=== PATIENT | female | born 1960 | race Caucasian/White ===

== ENCOUNTER 2016-07-03 22:05 | Emergency (ER) | payer BC ==
[~2016-07-03] VITALS: Ht 167.6 cm; Wt 137.9 kg
[~2016-07-03 22:05] MED LIST: ACCUPRIL40 MG PO; ACTOS 45 MG45 M1 PO; ADULT LOW DOSE81 MG PO; ADVAIR 250-501 EACH INH; ALBUTEROL INHAL17 GM INH; ALLEGRA180 MG PO; ALPRAZOLAM 0.50.5 M1 PO; AMARYL4 MG PO; AMBIEN 10 MG TA10 MG PO; ASPIRIN EC81 M1 PO; ATROVENT INH; ATROVENT NS; ATROVENT30 ML INH; ATROVENT30 ML NASAL; AUGMENTIN 875875 MG PO; AZOPT OPHTH1 %/10 M1 OPHTHALMIC; BLACK COHOSH EX80 MG PO; BUSPAR30 MG PO; BUSPIRONE HCL10 MG PO; CALCIUM 600 +1 EAC1 PO; CALCIUM CARBO1000 MG PO; CELEXA40 MG PO; CENTRUM SILVER1 EAC4 PO; DESYREL50 MG PO; DUONEB 2.5-0.5 M3 ML; ESTRATEST H.S.1 EACH PO; ESTROGEN/METHYL1 TA1 PO; FEXOFENADINE H180 MG PO; FISH OIL 1,0001 EAC5 PO; FLEXERIL PO; FLONASE 0.05%50 MCG NS; FLONASE NASAL; FLONASE16 GM; GLIMEPIRIDE4 MG PO; GLUCOSAMINE &1 EACH PO; HYDROCHLOROTHIA25 M2 PO; IRON159 MG PO; JANUVIA100 MG PO; KLOR-CON 10 ER10 MEQ PO; L-LYSINE1000 M1 PO; LAMOTRIGINE150 MG PO; LANTUS SC; LANTUS SUBQ; LATANOPROST2.5 ML OP; LEVAQUIN PO; LEXAPRO 10 MG T10 MG PO; LUMIGAN2.5 M1 OPHTHALMIC; MOBIC15 MG PO; MUCINEX TA600 MG/TA2 PO; MULTIVITAMINS1 EAC7 PO; NORCO 5-325 TA1 EACH PO; OMEPRAZOLE40 MG PO; PERCOCET 5-3251 EACH PO; PERCOCET 7.5-31 EACH PO; PHENERGAN 25 MG25 M1 PO; PRAVACHOL20 MG PO; PRAVASTATIN SOD20 MG PO; PREDNISONE 10 M10 MG PO; PREDNISONE 20 M20 MG PO; PREDNISONE50 MG PO; PRILOSEC40 MG PO; PROAIR HFA8.5 GM; PROBIOTIC1 EAC1 PO; REGLAN 10 MG TA10 MG PO; SINGULAIR 10 MG10 M1 PO; SONATA10 MG PO; SOY ISOFLAVONES40 MG PO; SYMBICORT160 MCG/4. INH; TEGRETOL PO; TOBREX5 ML OP; TRAZODONE HCL100 MG PO; TRUSOPT OCUMETE10 ML OP; TUSSIONEX PENN473 ML PO; VALIUM5 MG PO; VICODIN PO; VITAMIN B-12100 MC1 PO; VITAMIN B-12500 MCG PO; VITAMIN D2000 UNIT PO; VITAMINC500 PO; XALATAN2.5 ML OP; XANAX 0.25 MG0.25 MG PO; ZOFRAN ODT4 M1 PO; ZOLOFT50 MG PO; [UNRECOGNIZED DRUG - OTHER] PO
[2016-07-03 22:18] VITALS: BP 144/37
[2016-07-03] MEDS ORDERED: DILAUDID 2 MG TA2 MG PO (23:17)
== END 2016-07-03 23:10 | disposition home or self-care (01) ==
LOC: ER 22:05
DX: S86.812A Strain of other muscle(s) and tendon(s) at lower leg level, left leg, initial encounter (principal); S76.112A Strain of left quadriceps muscle, fascia and tendon, initial encounter; E11.9 Type 2 diabetes mellitus without complications; G40.909 Epilepsy, unspecified, not intractable, without status epilepticus; I10 Essential (primary) hypertension; Z90.89 Acquired absence of other organs; Z90.710 Acquired absence of both cervix and uterus; Z88.2 Allergy status to sulfonamides; Z88.6 Allergy status to analgesic agent; Z88.8 Allergy status to other drugs, medicaments and biological substances; X58.XXXA Exposure to other specified factors, initial encounter; Y93.89 Activity, other specified; Y92.89 Other specified places as the place of occurrence of the external cause; Y99.9 Unspecified external cause status

== ENCOUNTER 2016-07-31 09:18 | Emergency (ER) | payer BC ==
[~2016-07-31] VITALS: Ht 167.6 cm; Wt 137.9 kg
[~2016-07-31 09:18] MED LIST changes: +DILAUDID 2 MG TA2 MG PO
[2016-07-31 10:18] LABS: ABSOLUTE NEUTROPHILS 5.1 thou/uL (1.4-8.2); BASOPHILS 1.1 % (0.0-2.0); HEMATOCRIT 36.4 % (37.0-47.0); HEMOGLOBIN 12.1 gm/dL (12.0-15.0); MCH 29.3 pg (26.0-34.0); MCHC 33.1 g/dL (28.0-37.0); MCV 88.5 fL (80.0-100.0); MONOCYTES 5.9 % (1.0-8.0); PLATELET COUNT 243 thou/uL (150-400); RBC 4.12 mil/uL (4.20-5.00); RDW 15.5 % (10.5-14.5); WBC 6.7 thou/uL (4.0-11.0)
[2016-07-31 10:19] LABS: MANUAL DIFF NO
[2016-07-31 10:22] LABS: URINE BILIRUBIN NEGATIVE (Negative); URINE BLOOD NEGATIVE (Negative); URINE COLOR YELLOW; URINE GLUCOSE-RANDOM* NEGATIVE (Negative); URINE KETONES NEGATIVE (Negative); URINE NITRITE NEGATIVE (Negative); URINE PROTEIN (DIPSTICK) NEGATIVE (Negative); URINE SPECIFIC GRAVITY 1.015 (1.003-1.035); URINE UROBILINOGEN 0.2 E.U./dl (0.2-1.0)
[2016-07-31 10:29] LABS: CALCIUM 9.5 mg/dL (8.5-10.1); CREATININE 0.9 mg/dL (0.6-1.0); POTASSIUM 3.9 mmol/L (3.5-5.1)
[2016-07-31 10:33] LABS: ALBUMIN 3.7 g/dL (3.4-5.0); TOTAL BILIRUBIN 0.3 mg/dL (<0.1-1.0); TOTAL PROTEIN 7.1 g/dL (6.4-8.2)
[2016-07-31] MEDS ORDERED: LIDOCAINE 22 %/30 GM MM (12:18)
[2016-07-31] MEDS ORDERED: REGLAN 10 MG TA10 MG PO (12:18)
[2016-07-31] MEDS ORDERED: NORCO 5-325 TA1 EACH PO (12:26)
[2016-07-31 12:51] VITALS: BP 150/69
== END 2016-07-31 12:53 | disposition home or self-care (01) ==
LOC: ER 09:18
PROVIDERS: Physician Assistant
DX: R11.2 Nausea with vomiting, unspecified (principal); K08.89 Other specified disorders of teeth and supporting structures; R10.32 Left lower quadrant pain; E11.9 Type 2 diabetes mellitus without complications; I10 Essential (primary) hypertension; G40.909 Epilepsy, unspecified, not intractable, without status epilepticus; Z90.710 Acquired absence of both cervix and uterus; Z88.2 Allergy status to sulfonamides; Z88.6 Allergy status to analgesic agent

== ENCOUNTER 2016-12-16 01:14 | Inpatient (IN) | payer BC ==
[~2016-12-16] VITALS: Ht 167.6 cm; Wt 132.0 kg
[2016-12-16] VITALS (7 sets, daily range): BP systolic 132–160; BP diastolic 48–67
--- NOTE | ~2016-12-16 | HC ---
[facility] [place] [address] CONSULTATION Name: KWADWO SHAY Room #: 453-P [facility] IN ..#: [id number] Admission: 12/16/16 Attend Phys: Rashid Baez MD Discharge: Date of : 56 Report #: [id number] THIS REPORT FOR: //name// CC: Rashid Brito DATE OF SERVICE: 12/16/2016 GASTROINTESTINAL CONSULTATION DATE OF SERVICE: 12/16/2016 HISTORY OF PRESENT ILLNESS: The patient is a very pleasant 56-year-old female I have been asked to see for further evaluation of her GI complaints which include black stools, shortness of breath and chest pressure. She has been treated for C. diff x 2 in August and September, has had recent knee replacement less than a year ago and was found to have a hemoglobin of 7.7, which was significantly reduced over her baseline. PAST MEDICAL HISTORY: Complicated but includes glaucoma, seizure disorder, back injury, obesity, sinus surgery, cholecystectomy, eye surgeries, hypertension, left knee replacement. SOCIAL HISTORY: She has a smoking history, but quit over a year ago. She denies alcohol consumption or drug consumption. MEDICATIONS: Her medication list is extensive and includes Actos, Januvia, lamotrigine, Symbicort, omeprazole, Mobic, Accupril, Klor-Con, pravastatin, pantoprazole, latanoprost, aspirin, multivitamin, albuterol, Singulair, Reglan, hydrochlorothiazide, Mucinex, vitamin D3, trazodone, buspirone, Zoloft, Wellbutrin, Flonase, Atrovent, glucosamine, vitamin C, probiotic. FAMILY HISTORY: Noncontributory. REVIEW OF SYSTEMS: Negative for weight loss, weakness or fatigue. She denies head, eyes, ears, nose or throat complaints. She denies chest pain, chest palpitation, chest pressure, cough, shortness of breath, wheezing, genitourinary, musculoskeletal or neuropsychiatric complaints otherwise. PHYSICAL EXAMINATION: VITAL SIGNS: Afebrile, vital signs stable. HEENT: Nonicteric. NECK: No JVD, thyromegaly or bruits. CARDIOVASCULAR: Regular. LUNGS: Clear. ABDOMEN: Soft, nondistended, obese. No stigmata of chronic liver disease. [address] [address] CONSULTATION Name: KWADWO SHAY Room #: 453-P [facility] IN .R.#: [id number] Admission: 12/16/16 Attend Phys: Rashid Baez MD Discharge: Date of : 56 Report #: [id number] abnormal masses or bruits. EXTREMITIES: Not examined. NEUROLOGIC: Deferred. RECTAL: Deferred. PERTINENT LABORATORY DATA: Include hemoglobin 7.7, down significantly from her prior measurement, white count 7.0, platelet count 279. INR 1.0. Serum chemistry reviewed. Sodium 138, potassium 4.7, venous bicarbonate 95, BUN 36, creatinine 1.1. Liver tests are normal. Lipase normal. IMAGING: Chest x-ray, cardiomegaly with mild vascular congestion. ASSESSMENT AND PLAN: In summary, the patient presents with suspected upper gastrointestinal hemorrhage with melena and anemia. We will proceed with upper endoscopy to exclude actively bleeding peptic ulcer and have recommendations to follow. In the meantime, I would keep her n.p.o. and cover her with PPI therapy. <ELECTRONICALLY SIGNED> By: Calos Winchester MD 12/17/16 0959 1320 1418 Calos Winchester MD /nt
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
--- NOTE | ~2016-12-16 | EKG ---
[address] [address] ELECTROCARDIOGRAM REPORT Name: KWADWO SHAY Room #: 463-P ADM IN M.R.#: [id number] Admission: 12/16/16 Attend Phys: Rashid Baez MD Discharge: Date of : 56 Report #: [id number] THIS REPORT FOR: //name// [facility] ED Test Date: 2016-12-16 Test Time: 01:18:52 Pat Name: KWADWO SHAY Department: Room: [facility] Gender: F Loan Supervisor: [id number] : 1960 Requested By: Maurice Hassan Order Number: [id number] MD: Reyes Tee Measurements Intervals [place] Rate: 93 P: 25 AL: 157 QRS: 24 QRSD: 100 T: 59 QT: 371 QTc: 462 Interpretive Statements Sinus rhythm Probable left atrial enlargement LVH with secondary repolarization abnormality Compared to ECG 04/18/2016 21:01:23 No significant change was found Electronically Signed On 12-18-2016 8:17:10 CDT by Reyes Tee [email or web address] <ELECTRONICALLY SIGNED> By: Reyes Tee MD, [facility] 12/18/16 0817 0118 0118 Reyes Tee MD, [facility] /EPI
--- NOTE | ~2016-12-16 | P ---
[facility] [place] [address] PROCEDURE REPORT Name: KWADWO SHAY Room #: 463-P [facility] IN M.R.#: [id number] Admission: 12/16/16 Attend Phys: Rashid Baze MD Discharge: Date of : 56 Report #: [id number] THIS REPORT FOR: //name// CC: Rashid Brito BRIEF HISTORY: The patient is a 56-year-old woman who has a history of moderate aortic stenosis who has had black stools for several months. She has been found to be anemic and required blood transfusion. She had an upper endoscopy over the weekend and urgently for GI bleeding, an AVM was cauterized in duodenum. However, she was found to have changes in the antrum of stomach, thought to be consistent with a gastric antral vascular ectasias. Last black stool was yesterday. PREOPERATIVE DIAGNOSES: Gastrointestinal bleeding and gastric antral vascular ectasia. POSTOPERATIVE DIAGNOSIS: Gastric antral vascular ectasia. MEDICATIONS: Deep sedation with propofol per anesthesia. SPECIMEN: None. ESTIMATED BLOOD LOSS: 5 mL. PROCEDURE: EGD with argon plasma coagulation of gastric antral vascular ectasia. FINDINGS: Prior to propofol sedation, procedure of upper endoscopy and treatment with argon plasma coagulation discussed with the patient as well as potential risks and its complications. She indicates she understands and desires to proceed. DESCRIPTION OF PROCEDURE: With the patient in left lateral decubitus position, the [employer] video endoscope was inserted in the cervical esophagus under direct vision without difficulty. Examination of this organ through its entire length revealed normal esophageal mucosa down the squamocolumnar junction. No blood was seen in the esophagus. The scope was advanced into the stomach, which was examined on end view as well as retroflexed views. Examination of the stomach revealed normal mucosa in the proximal stomach including upon retroflexion. No bleeding lesions or ulcers were seen. Examination of distal stomach revealed typical pattern of watermelon stomach consistent with gastric antral vascular ectasias. The red stripes were quite prominent. There was some friability and just touching of the scope caused a little bit of bright red blood. These were in the antrum and right to the level of the pylorus. Examination of duodenal bulb and postbulbar duodenal sweep done revealed normal mucosa. At that point, the scope was drawn back into the stomach and we then started treating [facility] [address] [place] [address] PROCEDURE REPORT Name: KWADWO SHAY Room #: 463-P [facility] IN [facility]#: [id number] Admission: 12/16/16 Attend Phys: Rashid Baez MD Discharge: Date of : 56 Report #: [id number] the stomach with a 7-Macedonian argon plasma coagulation probe. We treated all the stripes. As expected, there was a little bit of oozing with the treatment but significant bleeding was not encountered. We periodically removed the argon gas from the stomach to reduce distention. We made multiple passes and all stripes were treated. At this point, the antrum was becoming very spastic and was very difficult to obtain good views. We made good success in treating this area. Gas was removed. The scope was withdrawn. The patient tolerated the procedure well. DISPOSITION: The patient with GI bleeding and vascular ectasia of the antrum. Treated as noted above. We will place on a PPI. We will also on a short term basis place her on sucralfate. We will have her return in 4 weeks for another treatment sessions to resolve her antral ectasias. <ELECTRONICALLY SIGNED> By: Louis Lane MD 12/18/16 [address] MD /nt
--- NOTE | ~2016-12-16 | P ---
[facility] [place] [address] PROCEDURE REPORT Name: KWADWO SHAY Room #: 453-P ADM IN M.R.#: [id number] Admission: 12/16/16 Attend Phys: Rashid Baez MD Discharge: Date of : 56 Report #: [id number] THIS REPORT FOR: //name// CC: Louis Brito DATE OF SERVICE: 12/16/2016 SURGEON: Calos Winchester MD PREOPERATIVE DIAGNOSIS: Upper gastrointestinal bleed. POSTOPERATIVE DIAGNOSIS: See below. ANESTHESIA USED: See anesthesia notes. NAME OF PROCEDURE PERFORMED: 1. Esophagogastroduodenoscopy. 2. BICAP electrocautery. INDICATION FOR PROCEDURE: As above. FINDINGS: 1. Duodenal AVM as described. 2. Watermelon stomach (moderate). 3. Otherwise, normal upper endoscopy. DESCRIPTION OF PROCEDURE: The risks and benefits of the procedure were explained in detail prior to monitored anesthesia. The patient was placed in left lateral decubitus position. The tip of the [employer] video endoscope was advanced into the oropharynx, esophagus, stomach, and to the third portion of the duodenum. A close inspection of the upper gastrointestinal mucosa was obtained upon slow withdrawal of the endoscope. The duodenum was normal in appearance except for a small AVM in the second portion of the duodenum. This was obliterated using BICAP cautery. Inspection of the duodenal bulb revealed no abnormalities. In the antrum ____ consistent with watermelon stomach or gastric antral vascular ectasia. There was no active bleeding, but there was some mild oozing during the case. Next, ____ endoscope revealed no significant abnormality of the fundus, cardia, or the body. The GE junction was located approximately 38 cm from the incisors and was normal in appearance. The patient tolerated the procedure well, was discharged, and was recovered in recovery. IMPRESSION: 1. Small duodenal arteriovenous malformation (treated). 2. Suspected watermelon stomach or gastric antral vascular ectasia. [facility] [address] [place] [address] PROCEDURE REPORT Name: KWADWO SHAY Room #: 453-P [facility] IN .R.#: [id number] Admission: 12/16/16 Attend Phys: Rashid Baez MD Discharge: Date of : 56 Report #: [id number] 3. Otherwise, normal upper endoscopy. PLAN: 1. Observe hemoglobin. 2. If trending downward, consider argon plasma coagulation of the antrum for treatment of watermelon stomach. <ELECTRONICALLY SIGNED> By: Calos Winchester MD 12/17/16 0959 1505 1709 Calos Winchester MD /nt
[~2016-12-16 01:14] MED LIST changes: +LIDOCAINE 22 %/30 GM MM; +PROMS25 WY RECTAL; +ZOFRAN ODT4 MG PO
[2016-12-16] MEDS ORDERED: DORZOLAMIDE HCL10 ML OPHTHALMIC (01:42)
[2016-12-16] MEDS ORDERED: WELLBUTRIN SR150 MG PO (01:45)
[2016-12-16] MEDS ORDERED: FLONASE 0.05%50 MCG NASAL (01:47)
[2016-12-16] MEDS ORDERED: ATROVENT HFA14 GM INH (01:47)
[2016-12-16 01:49] LABS: ABSOLUTE NEUTROPHILS 4.2 thou/uL (1.4-8.2); BASOPHILS 1.5 % (0.0-2.0); EOSINOPHILS 5.2 % (0.0-3.0); HEMATOCRIT 23.1 % (37.0-47.0); HEMOGLOBIN 7.7 gm/dL (12.0-15.0); LYMPHOCYTES 24.2 % (24.0-44.0); MCH 31.1 pg (26.0-34.0); MCHC 33.1 g/dL (28.0-37.0); MCV 93.9 fL (80.0-100.0); MONOCYTES 9.3 % (1.0-8.0); PLATELET COUNT 279 thou/uL (150-400); POLYS 59.8 % (36.0-66.0); RBC 2.46 mil/uL (4.20-5.00); RDW 14.7 % (10.5-14.5)
[2016-12-16] MEDS ORDERED: [UNRECOGNIZED DRUG - OTHER] PO (01:49)
[2016-12-16] MEDS ORDERED: KRILL OIL500 MG PO (01:50)
[2016-12-16] MEDS ORDERED: VITAMINC500 PO (01:50)
[2016-12-16] MEDS ORDERED: TUMS PO (01:50)
[2016-12-16] MEDS ORDERED: GLUCOSAMINE1000 MG PO (01:50)
[2016-12-16] MEDS ORDERED: PROBIOTIC1 EAC1 PO (01:51)
[2016-12-16] MEDS ORDERED: L-LYSINE500 M1 PO (01:51)
[2016-12-16 01:57] LABS: MANUAL DIFF NO
[2016-12-16 02:21] LABS: ANION GAP 11 mmol/L (7-16); BUN 36 mg/dL (7-18); CHLORIDE 103 mmol/L (98-107); CO2 24 mmol/L (21-32); CREATININE 1.1 mg/dL (0.6-1.0); GLUCOSE 171 mg/dL (74-106); SODIUM 138 mmol/L (136-145)
[2016-12-16 02:29] LABS: TROPONIN-I < 0.04 ng/mL (<0.04-0.07)
[2016-12-16 03:39] LABS: APTT 27.8 Seconds (24.5-32.8); PROTIME 10.4 Seconds (9.3-11.4)
[2016-12-16] MEDS ORDERED: ZOLOFT50 MG PO (05:38)
[2016-12-16] MEDS ORDERED: NASAL SPRAY30 M1 NASAL (05:41)
[2016-12-16 14:35] LABS: HEMATOCRIT 24.3 % (37.0-47.0); HEMOGLOBIN 8.1 gm/dL (12.0-15.0)
[2016-12-16 15:03] LABS: % SATURATION 24 % (20-39); IRON 71 ug/dL (50-170); TIBC 292 ug/dL (250-450); UIBC 221 ug/dL
[2016-12-16 16:06] LABS: FOLIC ACID 30.3 ng/mL (8.6-58.9)
[2016-12-16 22:09] LABS: GLYCOHEMOGLOBIN (HGB A1C) 5.4 % (4.8-5.6)
[2016-12-17 03:51] VITALS: BP 148/64
[2016-12-17 04:54] LABS: HEMATOCRIT 23.8 % (37.0-47.0); HEMOGLOBIN 7.8 gm/dL (12.0-15.0); MCH 30.5 pg (26.0-34.0); MCHC 32.8 g/dL (28.0-37.0); RBC 2.56 mil/uL (4.20-5.00); RDW 15.3 % (10.5-14.5); WBC 6.2 thou/uL (4.0-11.0)
[2016-12-17 05:11] LABS: CALCIUM 8.3 mg/dL (8.5-10.1); CREATININE 0.7 mg/dL (0.6-1.0)
[2016-12-17 08:13] VITALS: BP 140/63
[2016-12-17 12:41] VITALS: BP 173/76
[2016-12-17 14:45] VITALS: BP 161/81
[2016-12-17 17:02] VITALS: BP 128/55
[2016-12-17 21:24] VITALS: BP 145/63
[2016-12-18 04:00] VITALS: BP 135/48
[2016-12-18 07:19] LABS: ABSOLUTE NEUTROPHILS 2.9 thou/uL (1.4-8.2); EOSINOPHILS 6.3 % (0.0-3.0); HEMATOCRIT 23.3 % (37.0-47.0); HEMOGLOBIN 7.5 gm/dL (12.0-15.0); MCH 30.3 pg (26.0-34.0); MCHC 32.3 g/dL (28.0-37.0); MCV 93.9 fL (80.0-100.0); MONOCYTES 9.7 % (1.0-8.0); PLATELET COUNT 237 thou/uL (150-400); RBC 2.48 mil/uL (4.20-5.00); RDW 15.4 % (10.5-14.5); WBC 4.9 thou/uL (4.0-11.0)
[2016-12-18 07:22] LABS: MANUAL DIFF NO
[2016-12-18 07:28] LABS: CALCIUM 8.3 mg/dL (8.5-10.1); CREATININE 0.8 mg/dL (0.6-1.0)
[2016-12-18 08:37] VITALS: BP 133/62
[2016-12-18 16:07] VITALS: BP 123/57
[2016-12-18 19:56] VITALS: BP 139/43
[2016-12-19 04:30] VITALS: BP 123/44
[2016-12-19 06:32] LABS: HEMATOCRIT 23.1 % (37.0-47.0); HEMOGLOBIN 7.4 gm/dL (12.0-15.0); MCH 30.3 pg (26.0-34.0); MCHC 32.2 g/dL (28.0-37.0); MCV 93.9 fL (80.0-100.0); RBC 2.46 mil/uL (4.20-5.00); RDW 15.1 % (10.5-14.5); WBC 5.9 thou/uL (4.0-11.0)
[2016-12-19 08:15] VITALS: BP 151/70
[2016-12-19 13:56] VITALS: BP 141/45
[2016-12-19 15:58] VITALS: BP 145/75
[2016-12-19 16:59] VITALS: BP 115/48; BP 125/55
[2016-12-19 21:26] VITALS: BP 124/40
[2016-12-20 04:49] VITALS: BP 149/61
[2016-12-20 06:08] LABS: HEMATOCRIT 24.5 % (37.0-47.0); MCH 30.4 pg (26.0-34.0); MCHC 32.7 g/dL (28.0-37.0); RBC 2.63 mil/uL (4.20-5.00); RDW 14.7 % (10.5-14.5); WBC 5.5 thou/uL (4.0-11.0)
[2016-12-20 07:46] VITALS: BP 141/72
[2016-12-20] MEDS ORDERED: IRON325 PO (11:37)
[2016-12-20] MEDS ORDERED: CARAFATE 1 GM TA1 G1 PO (11:37)
[2016-12-20] MEDS ORDERED: ONDANSETRON HCL4 M2 PO (11:37)
[2016-12-20] MEDS ORDERED: PANTOPRAZOLE SO40 M1 PO (11:37)
[2016-12-20 11:47] VITALS: BP 132/47
[2016-12-20 12:14] VITALS: BP 132/47
== END 2016-12-20 14:39 | disposition home or self-care (01) | DRG 378 ==
LOC: ER 01:14 → EROBS 03:26 → 4W 03:26 → ENTRNSPT 12-20 14:25 → 4W 12-20 14:39
PROVIDERS: Emergency Medicine; Internal Medicine; Internal Medicine Endocrinology, Diabetes & Metabolism; Nurse Practitioner Family; Specialist
PROC: 30233N1 Transfusion of Nonautologous Red Blood Cells into Peripheral Vein, Percutaneous Approach (ICD-10-PCS; principal; 2016-12-16)
PROC: 0DJ08ZZ Inspection of Upper Intestinal Tract, Via Natural or Artificial Opening Endoscopic (ICD-10-PCS; principal; 2016-12-16)
PROC: 0D598ZZ Destruction of Duodenum, Via Natural or Artificial Opening Endoscopic (ICD-10-PCS; 2016-12-18)
DX: K31.811 Angiodysplasia of stomach and duodenum with bleeding (principal); D62 Acute posthemorrhagic anemia; Z68.42 Body mass index [BMI] 45.0-49.9, adult; H40.9 Unspecified glaucoma; E11.9 Type 2 diabetes mellitus without complications; G40.909 Epilepsy, unspecified, not intractable, without status epilepticus; I10 Essential (primary) hypertension; Z96.652 Presence of left artificial knee joint; G43.909 Migraine, unspecified, not intractable, without status migrainosus; E66.01 Morbid (severe) obesity due to excess calories; F41.9 Anxiety disorder, unspecified; E78.5 Hyperlipidemia, unspecified; Z79.51 Long term (current) use of inhaled steroids; Z79.899 Other long term (current) drug therapy; Z87.828 Personal history of other (healed) physical injury and trauma; Z90.710 Acquired absence of both cervix and uterus; Z90.49 Acquired absence of other specified parts of digestive tract; Z88.2 Allergy status to sulfonamides; Z88.8 Allergy status to other drugs, medicaments and biological substances; Z87.891 Personal history of nicotine dependence
CPT/HCPCS: 10045; 62110; 62900; 70005

== ENCOUNTER 2017-01-02 11:04 | Emergency (ER) | payer BC ==
[~2017-01-02] VITALS: Ht 167.6 cm; Wt 132.0 kg
--- NOTE | ~2017-01-02 | EKG ---
[address] [address] ELECTROCARDIOGRAM REPORT Name: KWADWO SHAY Room #: [facility]#: [id number] Admission: 01/02/17 Attend Phys: Discharge: 01/02/17 Date of : 56 Report #: [id number] THIS REPORT FOR: //name// [facility] ED Test Date: 2017-01-02 Test Time: 11:29:52 Pat Name: KWADWO SHAY Department: Room: Gender: F Rn Procedure: [facility] : 1960 Requested By: Everton Bentley Order Number: [id number] MD: Fabián Levy Measurements Intervals [place] Rate: 74 P: AR: QRS: 11 QRSD: 97 T: QT: 411 QTc: 456 Interpretive Statements Sinus rhythm Probable LVH with secondary repol abnrm Anterior ST elevation, probably due to LVH Motion artifact Compared to ECG 12/16/2016 01:18:52 ST (T wave) deviation unchanged. Sinus rhythm no longer present Electronically Signed On 01-02-2017 17:40:07 CDT by Fabián Levy [email or web address] <ELECTRONICALLY SIGNED> By: Fabián Levy MD 01/02/17 1740 1129 1129 Fabián Levy MD /EPI
[~2017-01-02 11:04] MED LIST changes: +ATROVENT HFA14 GM INH; +CARAFATE 1 GM TA1 G1 PO; +DORZOLAMIDE HCL10 ML OPHTHALMIC; +FLONASE 0.05%50 MCG NASAL; +GLUCOSAMINE1000 MG PO; +IRON325 PO; +KRILL OIL500 MG PO; +L-LYSINE500 M1 PO; +NASAL SPRAY30 M1 NASAL; +ONDANSETRON HCL4 M2 PO; +PANTOPRAZOLE SO40 M1 PO; +TUMS PO; +WELLBUTRIN SR150 MG PO; +[UNRECOGNIZED DRUG - OTHER] PO
[2017-01-02 11:40] LABS: ABSOLUTE NEUTROPHILS 3.9 thou/uL (1.4-8.2); BASOPHILS 1.3 % (0.0-2.0); EOSINOPHILS 6.4 % (0.0-3.0); HEMATOCRIT 32.1 % (37.0-47.0); HEMOGLOBIN 10.7 gm/dL (12.0-15.0); LYMPHOCYTES 16.2 % (24.0-44.0); MCH 29.1 pg (26.0-34.0); MCHC 33.4 g/dL (28.0-37.0); MCV 87.3 fL (80.0-100.0); MONOCYTES 7.4 % (1.0-8.0); PLATELET COUNT 393 thou/uL (150-400); POLYS 68.7 % (36.0-66.0); RBC 3.68 mil/uL (4.20-5.00); WBC 5.7 thou/uL (4.0-11.0)
[2017-01-02 11:45] LABS: MANUAL DIFF NO
[2017-01-02 12:44] LABS: ANION GAP 6 mmol/L (7-16); BUN 30 mg/dL (7-18); CALCIUM 9.3 mg/dL (8.5-10.1); CHLORIDE 105 mmol/L (98-107); CO2 25 mmol/L (21-32); GLUCOSE 159 mg/dL (74-106); POTASSIUM 4.3 mmol/L (3.5-5.1); SODIUM 136 mmol/L (136-145)
[2017-01-02 12:55] LABS: ALBUMIN 3.6 g/dL (3.4-5.0); ALKALINE PHOSPHATASE 78 U/L (46-116); SGOT 15 U/L (15-37); SGPT 17 U/L (30-65); TOTAL BILIRUBIN 0.2 mg/dL (<0.1-1.0); TOTAL PROTEIN 6.6 g/dL (6.4-8.2); TROPONIN-I < 0.04 ng/mL (<0.04-0.07)
[2017-01-02 13:16] LABS: URINE BILIRUBIN NEGATIVE (Negative); URINE BLOOD NEGATIVE (Negative); URINE COLOR YELLOW; URINE GLUCOSE-RANDOM* NEGATIVE (Negative); URINE KETONES NEGATIVE (Negative); URINE LEUKOCYTES-REFLEX NEGATIVE (Negative); URINE PROTEIN (DIPSTICK) NEGATIVE (Negative); URINE SPECIFIC GRAVITY 1.015 (1.003-1.035); URINE UROBILINOGEN 0.2 E.U./dl (0.2-1.0)
[2017-01-02] MEDS ORDERED: ZOFRAN ODT4 M1 PO (13:46)
== END 2017-01-02 14:06 | disposition home or self-care (01) ==
LOC: ER 11:04
PROVIDERS: Physician Assistant
DX: R00.2 Palpitations (principal); R53.1 Weakness; D64.9 Anemia, unspecified; E78.00 Pure hypercholesterolemia, unspecified; E11.9 Type 2 diabetes mellitus without complications; G40.909 Epilepsy, unspecified, not intractable, without status epilepticus; J45.909 Unspecified asthma, uncomplicated; I10 Essential (primary) hypertension; Z90.710 Acquired absence of both cervix and uterus; H40.9 Unspecified glaucoma; Z96.651 Presence of right artificial knee joint; Z98.890 Other specified postprocedural states; Z88.2 Allergy status to sulfonamides; Z88.6 Allergy status to analgesic agent; Z88.8 Allergy status to other drugs, medicaments and biological substances

== ENCOUNTER 2017-01-09 12:22 | Emergency (ER) | payer BC ==
[~2017-01-09] VITALS: Ht 167.6 cm; Wt 90.7 kg
--- NOTE | ~2017-01-09 | EKG ---
[address] [address] ELECTROCARDIOGRAM REPORT Name: KWADWO SHAY Room #: REG [facility]#: [id number] Admission: 01/09/17 Attend Phys: Discharge: Date of : 56 Report #: [id number] THIS REPORT FOR: //name// [facility] ED Test Date: 2017-01-09 Test Time: 12:24:54 Pat Name: KWADWO SHAY Department: Room: Gender: F Financial Internship: [id number] : 1960 Requested By: Tara Nuñez Order Number: [id number] MD: Fabián Levy Measurements Intervals [place] Rate: 78 P: 33 MO: 151 QRS: 18 QRSD: 99 T: 50 QT: 383 QTc: 437 Interpretive Statements Sinus rhythm Probable LVH with secondary repol abnrm Baseline wander in lead(s) V6 Compared to ECG 01/02/2017 11:29:52 ST (T wave) deviation no longer present Electronically Signed On 01-09-2017 13:59:28 CDT by Fabián Levy [email or web address] <ELECTRONICALLY SIGNED> By: Fabián Levy MD 01/09/17 1359 1224 1224 Fabián Levy MD /EPI
[2017-01-09 12:52] LABS: HEMATOCRIT 35.8 % (37.0-47.0); HEMOGLOBIN 11.6 gm/dL (12.0-15.0); MANUAL DIFF YES; MCH 28.5 pg (26.0-34.0); MCHC 32.5 g/dL (28.0-37.0); MCV 87.8 fL (80.0-100.0); PLATELET COUNT 356 thou/uL (150-400); RBC 4.07 mil/uL (4.20-5.00); RDW 15.1 % (10.5-14.5); WBC 13.1 thou/uL (4.0-11.0)
[2017-01-09 12:54] LABS: ANION GAP 7 mmol/L (7-16); BUN 23 mg/dL (7-18); CALCIUM 10.2 mg/dL (8.5-10.1); CHLORIDE 100 mmol/L (98-107); CO2 27 mmol/L (21-32); GLUCOSE 139 mg/dL (74-106); POTASSIUM 4.5 mmol/L (3.5-5.1); SODIUM 134 mmol/L (136-145)
[2017-01-09 13:03] LABS: ALKALINE PHOSPHATASE 82 U/L (46-116); SGOT 19 U/L (15-37); SGPT 16 U/L (30-65); TOTAL BILIRUBIN 0.2 mg/dL (<0.1-1.0); TOTAL PROTEIN 7.4 g/dL (6.4-8.2); TROPONIN-I < 0.04 ng/mL (<0.04-0.07)
[2017-01-09 13:55] LABS: ABSOLUTE NEUTROPHILS 8.5 thou/uL (1.4-8.2); PLATELET ESTIMATE NORMAL; TOTAL CELL COUNT 100
[2017-01-09] MEDS ORDERED: NORCO 5-325 TA1 EACH PO (17:09)
== END 2017-01-09 17:13 | disposition home or self-care (01) ==
LOC: ER 12:22
PROVIDERS: Physician Assistant
DX: R07.89 Other chest pain (principal); R09.1 Pleurisy; H40.9 Unspecified glaucoma; E78.00 Pure hypercholesterolemia, unspecified; E11.9 Type 2 diabetes mellitus without complications; I10 Essential (primary) hypertension; G40.909 Epilepsy, unspecified, not intractable, without status epilepticus; J45.909 Unspecified asthma, uncomplicated; Z96.651 Presence of right artificial knee joint; Z90.710 Acquired absence of both cervix and uterus; Z98.890 Other specified postprocedural states; Z88.2 Allergy status to sulfonamides; Z88.6 Allergy status to analgesic agent; Z88.8 Allergy status to other drugs, medicaments and biological substances

== ENCOUNTER → 2017-01-18 | Outpatient (CLI) | payer BC ==
[~2017-01-18] VITALS: Ht 167.6 cm; Wt 132.0 kg
[~2017-01-18] MED LIST changes: +ASPIR 8181 MG PO; +CALCIUM 500 +1 EAC5 PO; +GLUCOSAMINE CH1 EAC2 PO; +HYDROCHLOROTH12.5 M1 PO; +KLOR-CON 1010 MEQ PO; +PIOGLITAZONE15 MG PO; -PROAIR HFA8.5 GM; +PROAIR HFA8.5 GM INH; +REGLAN 5 MG TAB5 MG PO; +VITAMIN D1000 UNI1 PO; +XALATAN2.5 ML OPHTHALMIC
--- NOTE | ~2017-01-18 | P ---
[facility] [place] [address] PROCEDURE REPORT Name: KWADWO SHAY Room #: REG [facility]#: [id number] Admission: 01/18/17 Attend Phys: Louis Lane MD Discharge: Date of : 56 Report #: [id number] THIS REPORT FOR: //name// CC: Louis Brito MD DATE OF SERVICE: 01/18/2017 OUTPATIENT UPPER ENDOSCOPY DATE OF SERVICE: 01/18/2017 BRIEF HISTORY: The patient is a 56-year-old woman with iron deficiency anemia and evidence of gastric antral vascular ectasias for repeat treatment session. PREOPERATIVE DIAGNOSIS: Antral ectasias. POSTOPERATIVE DIAGNOSES: 1. Gastric antral vascular ectasias. 2. Small to moderate hiatus hernia. SPECIMEN: None. ESTIMATED BLOOD LOSS: None. PROCEDURE: EGD with argon plasma coagulation of gastric antral vascular ectasias. FINDINGS: Prior to propofol sedation, procedure of upper endoscopy and treatment was reviewed with the patient as well as potential risks and its complications. She indicates she understands and desires to proceed. DESCRIPTION OF PROCEDURE: With the patient in left lateral decubitus position, the [employer] video endoscope was inserted in the cervical esophagus under direct vision without difficulty. Examination of this organ through its entire length revealed normal esophageal mucosa down the squamocolumnar junction. The squamocolumnar junction was inspected and noted to be unremarkable. A small to moderate hiatus hernia was seen. The course of the hernia was unremarkable. The scope was advanced in the stomach, which was examined on end view as well as retroflexed views. Examination of distal stomach revealed a typical pattern of antral vascular ectasias, which were somewhat improved, but not resolved with regards to the previous session. Exam of the proximal stomach revealed no mass lesions. The pylorus bulb and postbulbar sweep were inspected and noted to be unremarkable. At that point, the scope was drawn back in the stomach and we systematically treated all visible areas of the antral ectasias. There was good [facility] [address] [place] [address] PROCEDURE REPORT Name: KWADWO SHAY Room #: REG [facility]#: [id number] Admission: 01/18/17 Attend Phys: Louis Lane MD Discharge: Date of : 56 Report #: [id number] hemostasis. We used a 7-Hebrew side-firing catheter. After all ectasias were treated, there was noted to be good hemostasis. Scope was withdrawn, the stomach decompressed from the argon gas. Scope was withdrawn. The patient tolerated the procedure well. CONDITION OF THE PATIENT UPON DISCHARGE: Following procedure, the patient drowsy, arousable. She will be discharged home when fully ambulatory. INSTRUCTIONS TO THE PATIENT AND FAMILY AT THE TIME OF DISCHARGE: The patient with findings as noted above. She was once again treated. We will have her continue her PPI. We will also have her return in 4 weeks for another treatment session. The patient reports to me that her last hemoglobin was 10.5. She notes it did improve, but recently has dropped slightly. By: [address] MD /nt
== END | disposition home or self-care (01) ==
LOC: GI 07:27
DX: K31.819 Angiodysplasia of stomach and duodenum without bleeding (principal); K44.9 Diaphragmatic hernia without obstruction or gangrene; J45.909 Unspecified asthma, uncomplicated; F32.89 Other specified depressive episodes; F41.8 Other specified anxiety disorders; E78.5 Hyperlipidemia, unspecified; E11.9 Type 2 diabetes mellitus without complications; M10.9 Gout, unspecified; Z90.710 Acquired absence of both cervix and uterus; Z90.49 Acquired absence of other specified parts of digestive tract; Z96.653 Presence of artificial knee joint, bilateral; Z98.890 Other specified postprocedural states; Z88.2 Allergy status to sulfonamides; Z88.8 Allergy status to other drugs, medicaments and biological substances; Z79.82 Long term (current) use of aspirin
CPT/HCPCS: 62110; 62900

== ENCOUNTER → 2017-02-22 | Outpatient (CLI) | payer BC ==
--- NOTE | ~2017-02-22 | P ---
[facility] [place] [address] PROCEDURE REPORT Name: KWADWO SHAY Room #: REG [facility]#: [id number] Admission: 02/22/17 Attend Phys: Louis Lane MD Discharge: Date of : 56 Report #: [id number] THIS REPORT FOR: //name// CC: Louis Brito MD BRIEF HISTORY: The patient is a 56-year-old woman with gastric antral vascular ectasias and anemia for continued treatment of her vascular ectasias in the antrum of her stomach. PREOPERATIVE DIAGNOSES: Gastric antral vascular ectasia with anemia. POSTOPERATIVE DIAGNOSES: Gastric antral vascular ectasia with anemia. MEDICATIONS: Deep sedation with propofol per anesthesia. SPECIMEN: None. ESTIMATED BLOOD LOSS: 3 mL. PROCEDURE: EGD with argon plasma coagulation of her antral ectasias. FINDINGS: Prior to propofol sedation, the procedure of EGD and argon plasma coagulation was discussed with the patient as well as potential risks, benefits, and complications. She indicates she understands and desires to proceed. In addition, her hemoglobin is now up to 10.5, which is an improvement. She also reports that overall she is feeling better and having much less nausea since we started treating her. With the patient in left lateral decubitus position, the [employer] double channel video endoscope was inserted in the cervical esophagus under direct vision without difficulty. Examination of this organ through its entire length revealed normal esophageal mucosa down the squamocolumnar junction. The squamocolumnar junction was inspected and noted to be unremarkable. She has a history of hiatus hernia, but hiatus hernia was not seen today. Scope was advanced into the stomach, was examined on end view as well as retroflexed views. Examination of the proximal length revealed normal mucosa. There was no fluid in her stomach. Examination of distal stomach revealed the antral ectasias. There is no evidence of bleeding. Overall, the volume of the vascular ectasias has been significantly reduced. Pylorus, normal. Duodenum bulb was normal. Postbulbar sweep was normal. Scope was withdrawn back in the antrum, we then underwent treatment of all visible areas with a 10-Danish probe. All visible areas were seen. As expected, there was a little bit of oozing, but significant bleeding was not encountered. All visible areas were treated. The patient tolerated the procedure well. [address] [address] PROCEDURE REPORT Name: KWADWO SHAY Room #: REG [facility]#: [id number] Admission: 02/22/17 Attend Phys: Louis Lane MD Discharge: Date of : 56 Report #: [id number] CONDITION OF THE PATIENT UPON DISCHARGE: Following procedure, the patient drowsy and will be discharged home when fully ambulatory. INSTRUCTIONS TO THE PATIENT AND FAMILY AT THE TIME OF DISCHARGE: I am pleased with her progress to date. We did use a 10-Danish probe today and hopefully, we have eradicated her antral ectasias. She will return in several weeks for another look and possible treatment if needed. Continue her iron. Continue to monitor her hemoglobin. By: [address] MD /nt
== END | disposition home or self-care (01) ==
LOC: GI 07:10
DX: K31.819 Angiodysplasia of stomach and duodenum without bleeding (principal); D64.9 Anemia, unspecified; J45.909 Unspecified asthma, uncomplicated; F41.8 Other specified anxiety disorders; Z88.8 Allergy status to other drugs, medicaments and biological substances; Z79.82 Long term (current) use of aspirin; Z79.891 Long term (current) use of opiate analgesic; Z79.899 Other long term (current) drug therapy
CPT/HCPCS: 62110; 62900

== ENCOUNTER → 2017-03-15 | Outpatient (CLI) | payer BC ==
--- NOTE | ~2017-03-15 | P ---
[facility] [place] [address] PROCEDURE REPORT Name: KWADWO SHAY Room #: REG [facility]#: [id number] Admission: 03/15/17 Attend Phys: Louis Lane MD Discharge: Date of : 56 Report #: [id number] THIS REPORT FOR: //name// CC: Louis Brito MD OUTPATIENT UPPER ENDOSCOPY REPORT BRIEF HISTORY: The patient is a 56-year-old woman with vascular antral ectasias of the stomach for continued treatment. 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 POSTOPERATIVE DIAGNOSIS: Vascular ectasias of the antrum of the stomach. MEDICATIONS: Deep sedation with propofol per anesthesia. SPECIMENS: None. ESTIMATED BLOOD LOSS: 3 mL. PROCEDURE: EGD with argon plasma coagulation of antral ectasias. FINDINGS: Prior to propofol sedation, procedure of upper endoscopy and argon plasma coagulation were discussed with the patient as well as potential risks and its complications. She indicates she understands and desires to proceed. DESCRIPTION OF PROCEDURE: With the patient in left lateral decubitus position, the NGDATAi double channel endoscope was inserted in the cervical esophagus under direct vision without difficulty. Examination of this organ through its entire length revealed normal esophageal mucosa down the squamocolumnar junction. The squamocolumnar junction was noted to be unremarkable. The scope was advanced in the stomach, was examined on end view as well as retroflexed views. She was noted to have antral vascular ectasias. There is still some present, but overall is much improved from pretreatment images. There was a small amount of fluid which suctioned out of the stomach. We then started treating the antrum with a 10-Uzbek probe with argon plasma coagulation. All visible areas were treated. There was a small amount of oozing, but significant bleeding was not encountered. It is noted during the exam she had a large amount of reflux, from the duodenum and she actually vomited up this material which had to be suctioned away. After all visible areas were treated, the procedure was terminated. It is noted that there is some erythematous areas in the proximal stomach. It is possible these could represent vascular ectasias but again they are in the proximal stomach rather than the antrum. If blood loss continues to be a problem, she may need to have these areas treated. [address] [address] PROCEDURE REPORT Name: LAURITAKWADWO K Room #: REG [facility] Nicole#: [id number] Admission: 03/15/17 Attend Phys: Louis Lane MD Discharge: Date of : 56 Report #: [id number] CONDITION OF THE PATIENT UPON DISCHARGE: Following procedure, the patient drowsy. She will be discharged home when fully ambulatory. INSTRUCTIONS TO THE PATIENT AND FAMILY AT THE TIME OF DISCHARGE: She will continue her proton pump inhibitor. All visible areas have been treated. I think at this point in time it will be reasonable to monitor hemoglobin. If she maintains an adequate hemoglobin on iron supplementation that may be satisfactory. However, if she has further drop in hemoglobin, repeat procedures may be needed. She will return to care of Dr. Sri Brito and return to see me if she should have further drops in hemoglobin. <ELECTRONICALLY SIGNED> By: Louis Lane MD 03/16/[address] MD /nt
== END | disposition home or self-care (01) ==
LOC: GI 10:40
DX: K31.819 Angiodysplasia of stomach and duodenum without bleeding (principal)

== ENCOUNTER 2017-04-02 20:51 | Emergency (ER) | payer BC ==
[~2017-04-02] VITALS: Ht 167.6 cm; Wt 127.9 kg
[2017-04-02] MEDS ORDERED: TESSALON PERLE100 MG PO (22:22)
[2017-04-02] MEDS ORDERED: DOXYCYCLINE HY100 M3 PO (22:22)
[2017-04-02] MEDS ORDERED: PREDNISONE 20 M20 MG PO (22:22)
[2017-04-02 22:47] VITALS: BP 137/63
== END 2017-04-02 22:49 | disposition home or self-care (01) ==
LOC: ER 20:51
DX: J32.9 Chronic sinusitis, unspecified (principal); J45.909 Unspecified asthma, uncomplicated; J04.0 Acute laryngitis; E78.5 Hyperlipidemia, unspecified; I10 Essential (primary) hypertension; E11.9 Type 2 diabetes mellitus without complications; K21.9 Gastro-esophageal reflux disease without esophagitis; F32.9 Major depressive disorder, single episode, unspecified; Z86.2 Personal history of diseases of the blood and blood-forming organs and certain disorders involving the immune mechanism; Z90.710 Acquired absence of both cervix and uterus; Z90.49 Acquired absence of other specified parts of digestive tract; Z96.653 Presence of artificial knee joint, bilateral; Z88.6 Allergy status to analgesic agent; Z88.2 Allergy status to sulfonamides; Z88.8 Allergy status to other drugs, medicaments and biological substances

== ENCOUNTER 2017-11-11 03:48 | Emergency (ER) | payer BC ==
[~2017-11-11] VITALS: Ht 167.6 cm; Wt 133.4 kg
--- NOTE | ~2017-11-11 | EKG ---
[address] [address] ELECTROCARDIOGRAM REPORT Name: KWADWO SHAY Room #: DEP [facility]#: [id number] Admission: 11/11/17 Attend Phys: Discharge: 11/11/17 Date of : 56 Report #: [id number] THIS REPORT FOR: //name// [facility] ED Test Date: 2017-11-11 Test Time: 04:04:58 Pat Name: KWADWO SHAY Department: Room: Gender: F Gasoline Attendant: chay : 1960 Requested By: Kina Jean Order Number: [id number] MD: Reyes Tee Measurements Intervals [place] Rate: 81 P: 41 ID: 168 QRS: 23 QRSD: 102 T: 79 QT: 398 QTc: 462 Interpretive Statements Sinus rhythm No significant abnormality Compared to ECG 01/09/2017 12:24:54 No significant change was found Electronically Signed On 11-12-2017 8:40:09 CDT by Reyes Tee [email or web address] <ELECTRONICALLY SIGNED> By: Reyes Tee MD, [facility] 11/12/17 0840 0404 0404 Reyes Tee MD, FAC /EPI
[~2017-11-11 03:48] MED LIST changes: +DOXYCYCLINE HY100 M3 PO; +TESSALON PERLE100 MG PO
[2017-11-11] MEDS ORDERED: TRAZODONE HCL100 MG PO (04:19)
[2017-11-11] MEDS ORDERED: LUNESTA1 MG PO (04:20)
[2017-11-11 05:02] LABS: ABSOLUTE NEUTROPHILS 4.1 thou/uL (1.4-8.2); BASOPHILS 1.2 % (0.0-2.0); EOSINOPHILS 7.2 % (0.0-3.0); HEMATOCRIT 29.3 % (37.0-47.0); HEMOGLOBIN 9.8 gm/dL (12.0-15.0); LYMPHOCYTES 20.3 % (24.0-44.0); MCH 30.5 pg (26.0-34.0); MCHC 33.4 g/dL (28.0-37.0); MCV 91.4 fL (80.0-100.0); MONOCYTES 10.6 % (1.0-8.0); PLATELET COUNT 256 thou/uL (150-400); POLYS 60.7 % (36.0-66.0); RBC 3.21 mil/uL (4.20-5.00); RDW 15.8 % (10.5-14.5); WBC 6.8 thou/uL (4.0-11.0)
[2017-11-11] MEDS ORDERED: TRAMADOL 50 MG50 MG PO (05:06)
[2017-11-11 05:11] LABS: ANION GAP 8 mmol/L (7-16); BUN 23 mg/dL (7-18); CHLORIDE 102 mmol/L (98-107); CO2 26 mmol/L (21-32); CREATININE 1.1 mg/dL (0.6-1.0); GLUCOSE 137 mg/dL (74-106); SODIUM 136 mmol/L (136-145)
[2017-11-11 05:20] LABS: TROPONIN-I <0.06 ng/mL (<0.06)
[2017-11-11] MEDS ORDERED: NORCO 5-325 TA1 EACH PO (05:54)
[2017-11-11 06:00] LABS: URINE BILIRUBIN NEGATIVE (Negative); URINE BLOOD NEGATIVE (Negative); URINE CLARITY CLEAR; URINE COLOR YELLOW; URINE GLUCOSE-RANDOM* NEGATIVE (Negative); URINE KETONES NEGATIVE (Negative); URINE LEUKOCYTES TRACE (Negative); URINE NITRITE NEGATIVE (Negative); URINE PROTEIN (DIPSTICK) NEGATIVE (Negative); URINE UROBILINOGEN 0.2 E.U./dl (0.2-1.0)
== END 2017-11-11 06:35 | disposition home or self-care (01) ==
LOC: ER 03:48
PROVIDERS: Emergency Medicine
DX: R09.1 Pleurisy (principal); R07.89 Other chest pain; E11.9 Type 2 diabetes mellitus without complications; E78.5 Hyperlipidemia, unspecified; I10 Essential (primary) hypertension; J45.909 Unspecified asthma, uncomplicated; K21.9 Gastro-esophageal reflux disease without esophagitis; F32.9 Major depressive disorder, single episode, unspecified; E66.9 Obesity, unspecified; Z86.2 Personal history of diseases of the blood and blood-forming organs and certain disorders involving the immune mechanism; Z88.6 Allergy status to analgesic agent; Z88.2 Allergy status to sulfonamides; Z88.8 Allergy status to other drugs, medicaments and biological substances; Z91.048 Other nonmedicinal substance allergy status; Z98.890 Other specified postprocedural states; Z68.42 Body mass index [BMI] 45.0-49.9, adult; Z90.710 Acquired absence of both cervix and uterus; Z90.49 Acquired absence of other specified parts of digestive tract; Z96.653 Presence of artificial knee joint, bilateral

== ENCOUNTER → 2017-11-19 | Outpatient (CLI) | payer BC ==
[~2017-11-19] MED LIST changes: +LUNESTA1 MG PO; +TRAMADOL 50 MG50 MG PO
[2017-11-19 10:44] LABS: CREATININE 0.9 mg/dL (0.6-1.0)
== END ==
LOC: CAT 09:55
PROVIDERS: Internal Medicine Pulmonary Disease
DX: M47.812 Spondylosis without myelopathy or radiculopathy, cervical region (principal); N20.0 Calculus of kidney; R07.9 Chest pain, unspecified; R06.02 Shortness of breath; R09.89 Other specified symptoms and signs involving the circulatory and respiratory systems

== ENCOUNTER 2018-09-03 19:43 | Emergency (ER) | payer BC ==
[~2018-09-03] VITALS: Ht 167.6 cm; Wt 145.2 kg
[2018-09-03 21:16] LABS: EOSINOPHILS 1.7 % (0.0-3.0); HEMATOCRIT 34.6 % (37.0-47.0); HEMOGLOBIN 11.5 gm/dL (12.0-15.0); LYMPHOCYTES 18.3 % (24.0-44.0); MCH 30.4 pg (26.0-34.0); MCHC 33.3 g/dL (28.0-37.0); MCV 91.3 fL (80.0-100.0); MONOCYTES 6.4 % (1.0-8.0); PLATELET COUNT 253 thou/uL (150-400); POLYS 72.6 % (36.0-66.0); RBC 3.79 mil/uL (4.20-5.00); RDW 15.8 % (10.5-14.5); WBC 10.7 thou/uL (4.0-11.0)
[2018-09-03 21:25] LABS: ANION GAP 10 mmol/L (7-16); BUN 20 mg/dL (7-18); CALCIUM 9.7 mg/dL (8.5-10.1); CHLORIDE 102 mmol/L (98-107); CO2 25 mmol/L (21-32); CREATININE 0.9 mg/dL (0.6-1.0); GLUCOSE 137 mg/dL (74-106); POTASSIUM 4.3 mmol/L (3.5-5.1); SODIUM 137 mmol/L (136-145)
[2018-09-03 21:34] LABS: TROPONIN-I <0.06 ng/mL (<0.06)
[2018-09-03 23:45] VITALS: BP 117/37
--- NOTE | 2018-09-04 08:04 | EKG ---
[address] [address] ELECTROCARDIOGRAM REPORT Name: KWADWO SHAY Room #: DEP [facility]#: [id number] ������������������ Admission: 09/03/18 ������������������ Attend Phys: Discharge: 09/03/18 ������������������ Date of : 56 Report #: [id number] ����������������������������������������������������������������� [id number] THIS REPORT FOR: //name// [facility] ED Test Date: 2018-09-03 Test Time: 20:38:06 Pat Name: KWADWO SHAY Department: Room: Gender: F Health Unit Supervisor: swati : 1960 Requested By: Maged Burns Order Number: [id number] MD: Reyes Tee Measurements Intervals [place] Rate: 72 P: 47 MA: 139 QRS: 43 QRSD: 98 T: 56 QT: 400 QTc: 438 Interpretive Statements Sinus rhythm No significant abnormality Compared to ECG 11/11/2017 04:04:58 No significant change was found Electronically Signed On 09-04-2018 8:04:27 CDT by Reyes Tee [email or web address] ��������������������������������������������� <ELECTRONICALLY SIGNED> ���������������������������������������� By: Reyes Tee MD, [facility] ��������������������������������������������� 09/04/1804 37 37 Reyes Tee MD, FACC /EPI
== END 2018-09-03 23:45 | disposition home or self-care (01) ==
LOC: ER 19:43
PROVIDERS: Emergency Medicine
DX: R06.00 Dyspnea, unspecified (principal); E11.621 Type 2 diabetes mellitus with foot ulcer; L97.519 Non-pressure chronic ulcer of other part of right foot with unspecified severity; F41.9 Anxiety disorder, unspecified; E78.5 Hyperlipidemia, unspecified; I10 Essential (primary) hypertension; J45.909 Unspecified asthma, uncomplicated; K21.9 Gastro-esophageal reflux disease without esophagitis; Z96.653 Presence of artificial knee joint, bilateral; Z79.899 Other long term (current) drug therapy; Z88.2 Allergy status to sulfonamides; Z88.6 Allergy status to analgesic agent; Z88.8 Allergy status to other drugs, medicaments and biological substances

== ENCOUNTER 2019-02-01 12:03 | Emergency (ER) | payer BC ==
[~2019-02-01] VITALS: Ht 167.6 cm; Wt 145.2 kg
[~2019-02-01 12:03] MED LIST changes: -VITAMIN D1000 UNI1 PO; +VITAMIN D1000 UNI2 PO
[2019-02-01 13:16] LABS: ABSOLUTE NEUTROPHILS 10.7 thou/uL (1.4-8.2); BASOPHILS 0.2 % (0.0-2.0); EOSINOPHILS 0.1 % (0.0-3.0); HEMATOCRIT 33.5 % (37.0-47.0); HEMOGLOBIN 10.8 gm/dL (12.0-15.0); LYMPHOCYTES 6.9 % (24.0-44.0); MCH 30.9 pg (26.0-34.0); MCHC 32.2 g/dL (28.0-37.0); MONOCYTES 2.4 % (1.0-8.0); PLATELET COUNT 319 thou/uL (150-400); POLYS 90.4 % (36.0-66.0); RBC 3.49 mil/uL (4.20-5.00); RDW 15.1 % (10.5-14.5); WBC 11.9 thou/uL (4.0-11.0)
[2019-02-01 13:23] LABS: ANION GAP 7 mmol/L (7-16); BUN 20 mg/dL (7-18); CALCIUM 9.6 mg/dL (8.5-10.1); CHLORIDE 99 mmol/L (98-107); CO2 29 mmol/L (21-32); CREATININE 0.9 mg/dL (0.6-1.0); GLUCOSE 251 mg/dL (74-106); POTASSIUM 4.2 mmol/L (3.5-5.1); SODIUM 135 mmol/L (136-145)
[2019-02-01 13:33] LABS: ALBUMIN 3.5 g/dL (3.4-5.0); SGOT 17 U/L (15-37); SGPT 26 U/L (30-65); TOTAL BILIRUBIN 0.5 mg/dL (<0.1-1.0); TOTAL PROTEIN 6.6 g/dL (6.4-8.2); TROPONIN-I <0.06 ng/mL (<0.06)
[2019-02-01] MEDS ORDERED: NEURONTIN300 MG PO (14:03)
[2019-02-01] MEDS ORDERED: PRAVACHOL 20 MG20 M1 PO (14:03)
[2019-02-01] MEDS ORDERED: EFFEXOR XR150 MG PO (14:04)
[2019-02-01 15:22] VITALS: BP 142/76
--- NOTE | 2019-02-02 10:20 | EKG ---
[address] [address] ELECTROCARDIOGRAM REPORT Name: KWADWO SHAY Room #: [facility]#: [id number] Admission: 02/01/19 Attend Phys: Discharge: 02/01/19 Date of : 56 Report #: [id number] THIS REPORT FOR: //name// [facility] ED Test Date: 2019-02-01 Test Time: 12:49:04 Pat Name: KWADWO SHAY Department: Room: Gender: F Product Manager: WG : 1960 Requested By: Den Valles Order Number: [id number] MD: Chris Beatty Measurements Intervals [place] Rate: 76 P: 62 MI: 126 QRS: 19 QRSD: 100 T: 80 QT: 388 QTc: 437 Interpretive Statements Sinus rhythm Atrial premature complex Left atrial enlargement LVH with secondary repolarization abnormality Anterior ST elevation, probably due to LVH Compared to ECG 09/03/2018 20:38:06 Atrial premature complex(es) now present Atrial abnormality now present Left ventricular hypertrophy now present Early repolarization now present ST (T wave) deviation now present Electronically Signed On 02-02-2019 10:19:47 [employer] by Chris Beatty [email or web address] <ELECTRONICALLY SIGNED> By: Chris Beatty MD 02/02/19 1019 1249 1249 Chris Beatty MD /EPI
[2019-02-02] MEDS ORDERED: SPIRIVA RESPIMAT4 G1 INH (22:11)
[2019-02-02] MEDS ORDERED: FLUTICASONE PRO30 G1 NASAL (22:16)
[2019-02-02] MEDS ORDERED: VITAMIN C500 M2 PO (22:18)
[2019-02-02] MEDS ORDERED: KRILL OIL500 MG PO (22:19)
[2019-02-02] MEDS ORDERED: L-LYSINE500 M1 PO (22:19)
[2019-02-02] MEDS ORDERED: CALCIUM500 MG PO (22:19)
[2019-02-02] MEDS ORDERED: XANAX 0.25 MG0.25 MG PO (22:42)
== END 2019-02-01 15:24 | disposition home or self-care (01) ==
LOC: ER 12:03
PROVIDERS: Emergency Medicine
DX: R06.02 Shortness of breath (principal); I10 Essential (primary) hypertension; E11.9 Type 2 diabetes mellitus without complications; J45.909 Unspecified asthma, uncomplicated; E78.5 Hyperlipidemia, unspecified; F32.9 Major depressive disorder, single episode, unspecified; K21.9 Gastro-esophageal reflux disease without esophagitis; Z90.49 Acquired absence of other specified parts of digestive tract; Z86.2 Personal history of diseases of the blood and blood-forming organs and certain disorders involving the immune mechanism; Z88.6 Allergy status to analgesic agent; Z88.2 Allergy status to sulfonamides; Z91.048 Other nonmedicinal substance allergy status

== ENCOUNTER 2019-02-02 12:32 | Inpatient (IN) | payer BC ==
[~2019-02-02] VITALS: Ht 167.6 cm; Wt 153.8 kg
--- NOTE | ~2019-02-02 | HC ---
[facility] [place] [address] CONSULTATION Name: KWADWO SHAY Room #: 360-P [facility] IN M.R.#: [id number] Admission: 02/02/19 Attend Phys: Stephan Fortune MD Discharge: 02/05/19 Date of : 56 Report #: [id number] THIS REPORT FOR: //name// CC: Stephan Brito DATE OF SERVICE: 02/05/2019 We were asked to see the patient by Dr. Haro. HISTORY OF PRESENT ILLNESS: The patient is a 58-year-old admitted with shortness of breath on 02/02/2019. The patient states she had a left-sided chest pain and shortness of air, stating that "I can't breathe." The patient had thought she had the exacerbation of an asthma and received a prednisone dose from her electrolytic etcher. Unfortunately, this did not ameliorate the symptoms. Since admission, the patient received Lasix and had a good diuresis and resolution of symptoms. A transthoracic echocardiogram was done and this shows severe aortic valve stenosis with a calculated valve area of 0.9 cm2 at a peak gradient of 99 mmHg and a mean gradient of 60. Troponins have been negative. CT angiogram shows no evidence of a pulmonary embolism. PAST MEDICAL HISTORY: Significant for a glaucoma, seizure disorder, hyperlipidemia, lymphedema, diabetes mellitus, hypertension, and gastroesophageal reflux disease. MEDICATIONS AT HOME: Includes Lamictal, Singulair, buspirone, potassium, trazodone, Neurontin, Pravachol, Effexor, ProAir, dorzolamide eye drops, Symbicort, omeprazole, Actos, Januvia, Accupril, hydrochlorothiazide, Latanoprost eyedrops, vitamins, and calcium. ALLERGIES: Include IBUPROFEN, which causes swelling and rash, SULFA, which causes swelling and rash, PHENYTOIN, which causes swelling and hives, ADHESIVE causes rash, and BETA-BE UNCOATED. SOCIAL HISTORY: The patient is a nonsmoker and denies alcohol use. Lives in [place], but sees a time stamp assembler in [place]. REVIEW OF SYSTEMS: CONSTITUTIONAL: Negative for fever or chills. EYES: No vision changes, wears glasses. HEENT: Negative for headache, ear pain, or drainage. RESPIRATORY: As mentioned, short of breath acutely and has asthma chronically. CARDIAC: Chest pain on admission. No palpitations. GASTROINTESTINAL: No nausea, vomiting, or abdominal pain. GENITOURINARY: No dysuria or blood in urine. [address] [address] CONSULTATION Name: KWADWO SHAY Room #: 360-[facility] IN M.R.#: [id number] Admission: 02/02/19 Attend Phys: Stephan Fortune MD Discharge: 02/05/19 Date of : 56 Report #: [id number] MUSCULOSKELETAL: Has chronic back pain. SKIN: No rash or infection. NEUROLOGIC: No motor or sensory dysfunction. Does admit to headaches. PHYSICAL EXAMINATION: GENERAL: The patient is sitting on the side of the bed, seems comfortable, no pulmonary dysfunction. VITAL SIGNS: Temperature is 36.8, pulse rate 96, respiratory rate 17, blood pressure 143/73, and O2 sat 97 on room air. HEENT: No scleral icterus. No arcus. Pupils are round and equal. Normocephalic. NECK: No mass. No bruit. CHEST: Clear to auscultation. HEART: Rhythm regular and no murmur. ABDOMEN: Soft. The patient does have centripetal obesity. EXTREMITIES: Lower extremity lymphedema. No cyanosis. NEUROLOGIC: No obvious motor or sensory dysfunction. MUSCULOSKELETAL: No bone or joint asymmetry or deformity. I reviewed the indication for our consultation. Unfortunately, there is not much more information for me to assess at this point. The echo suggests the patient has important aortic valve stenosis and this does appear to be the cause of the patient's heart failure and shortness of breath. The patient expresses some interest in having her own time stamp assembler, Dr. Patterson, to be involved. I have also expressed the view that in this day and age a transarterial valve replacement should be considered in such a patient. Obviously, the coronaries need to be better evaluated. At this point, there was not much more to add as the workup is incomplete. Thank you for the consult. By: [id number] Louis Perez MD /nt
[~2019-02-02 12:32] MED LIST changes: +EFFEXOR XR150 MG PO; +NEURONTIN300 MG PO; +PRAVACHOL 20 MG20 M1 PO
[2019-02-02 12:35] VITALS: BP 127/58
[2019-02-02 13:10] LABS: ABSOLUTE NEUTROPHILS 8.1 thou/uL (1.4-8.2); BASOPHILS 0.5 % (0.0-2.0); EOSINOPHILS 1.1 % (0.0-3.0); HEMATOCRIT 33.1 % (37.0-47.0); HEMOGLOBIN 10.7 gm/dL (12.0-15.0); LYMPHOCYTES 15.2 % (24.0-44.0); MCH 31.4 pg (26.0-34.0); MCHC 32.5 g/dL (28.0-37.0); MCV 96.7 fL (80.0-100.0); PLATELET COUNT 322 thou/uL (150-400); POLYS 78.2 % (36.0-66.0); RBC 3.42 mil/uL (4.20-5.00); RDW 15.2 % (10.5-14.5); WBC 10.4 thou/uL (4.0-11.0)
[2019-02-02 13:18] LABS: ANION GAP 10 mmol/L (7-16); BUN 19 mg/dL (7-18); CALCIUM 9.4 mg/dL (8.5-10.1); CHLORIDE 100 mmol/L (98-107); CO2 27 mmol/L (21-32); CREATININE 0.8 mg/dL (0.6-1.0); GLUCOSE 152 mg/dL (74-106); POTASSIUM 3.8 mmol/L (3.5-5.1); SODIUM 137 mmol/L (136-145)
--- NOTE | 2019-02-02 13:19 | NUR ---
UNSUCCESSFUL IV ATTEMPT BY THIS RN, IV TEAM PAGED.
[2019-02-02 13:26] LABS: ALBUMIN 3.2 g/dL (3.4-5.0); SGOT 28 U/L (15-37); SGPT 24 U/L (30-65); TOTAL BILIRUBIN 0.5 mg/dL (<0.1-1.0); TOTAL PROTEIN 6.1 g/dL (6.4-8.2); TROPONIN-I <0.06 ng/mL (<0.06)
[2019-02-02 14:45] LABS: BE(vivo) 3.2 mmol/L (-2 to +3); HCO3 26.5 mmol/L (22.0-26.0); PCO2 35.8 mmHg (35.0-45.0); PO2 83.8 mmHg (80.0-100.0); pH 7.488 (7.360-7.450)
[2019-02-02 17:01] VITALS: BP 124/57
--- NOTE | 2019-02-02 17:10 | NUR ---
PT REPORT TRIED TO BE CALLED. NURSE SAID THEY WILL HAVE SOMEONE CALL BACK WHEN THEY DECIDE WHO IS GETTING THE ROOM
[2019-02-02 18:05] VITALS: BP 107/53
[2019-02-02 18:42] VITALS: BP 139/61
--- NOTE | 2019-02-02 19:54 | NUR ---
PT. ARRIVED ROUND 1800 AT THE FLOOR; AXO4; C/O PAIN OVER CHEST AREA; ORDERS RECEIVED; IV MEDICATION GIVEN; VS WNL; ABLE TO AMBULATE WITH ASSISTANCE FROM BED TO BATHROOM; PASSED ON REPORT;
[2019-02-02 20:45] VITALS: BP 136/68
[2019-02-02] MEDS ORDERED: SPIRIVA RESPIMAT4 G1 INH (22:11)
[2019-02-02] MEDS ORDERED: FLUTICASONE PRO30 G1 NASAL (22:16)
[2019-02-02] MEDS ORDERED: VITAMIN C500 M2 PO (22:18)
[2019-02-02] MEDS ORDERED: KRILL OIL500 MG PO (22:19)
[2019-02-02] MEDS ORDERED: CALCIUM500 MG PO (22:19)
[2019-02-02] MEDS ORDERED: L-LYSINE500 M1 PO (22:19)
[2019-02-02] MEDS ORDERED: XANAX 0.25 MG0.25 MG PO (22:42)
[2019-02-03] VITALS: BP 130/65
[2019-02-03 04:40] VITALS: BP 126/70
--- NOTE | 2019-02-03 04:40 | NUR ---
ASSUMED PT CARE AROUND 1900. ADMISSION HX AND ASSESSMENT COMPLETED CHARTED. PT'S SIGNIFICANT OTHER/DPOA PRESENT AT BEDSIDE. PT IS A&OX4. SHE CAN BE ANXIOUS AT TIMES. PT STATED SHE HAS ANXIETY ATTACKS SOMETIMES. C/O CHEST PAIN W/ TAKING A DEEP BREATH AND WITH EXERTION. O2 SATS STABLE ON RA. VSS. AFEBRILE. NOTIFIED PLANT ATTENDANT CARTON STENCILER FOR HOSPIALIST OF PT'S PAIN AND ANXIETY. ORDERS RECEIVED. PT WAS GIVEN PRN XANAX AND TYLENOL. PT HAS BEEN SLEEPING MOST OF THE NIGHT. RESP EVEN AND UNLABORED. UP W/ SBA TO BTR. STEADY GAIT. PROGRESSING SLOWLY TOWARD POC GOALS. WILL CONTINUE TO MONITOR FURTHER.
[2019-02-03 04:58] LABS: HEMOGLOBIN 10.3 gm/dL (12.0-15.0); MCH 31.8 pg (26.0-34.0); MCHC 32.2 g/dL (28.0-37.0); MCV 98.8 fL (80.0-100.0); RBC 3.24 mil/uL (4.20-5.00); RDW 15.4 % (10.5-14.5); WBC 10.2 thou/uL (4.0-11.0)
[2019-02-03 05:18] LABS: ANION GAP 11 mmol/L (7-16); BUN 26 mg/dL (7-18); CALCIUM 8.4 mg/dL (8.5-10.1); CHLORIDE 97 mmol/L (98-107); CO2 23 mmol/L (21-32); CREATININE 1.5 mg/dL (0.6-1.0); GLUCOSE 413 mg/dL (74-106); MAGNESIUM 1.7 mg/dL (1.8-2.4); POTASSIUM 4.6 mmol/L (3.5-5.1); SODIUM 131 mmol/L (136-145); TROPONIN-I <0.06 ng/mL (<0.06)
[2019-02-03 07:49] VITALS: BP 155/75
--- NOTE | 2019-02-03 12:38 | NUR ---
INITIAL ASSESSMENT: MARILEE reviewed chart and spoke with nursing and attending physician. Pt was admitted from home due to SOB. Pt currently on IV abx and IV steroids. Pulm consulted. MARILEE met with pt s s/oJohanna, at bedside. Introduced role of SW. Pt is currently off the unit having swallow study. Per s/o, pt is alert/orientated x 4. Prior to admission, pt was independent with ADLs. No prior use of DME. No hx of post acute placement . Pt s PCP is Dr Sri Brito. Audio Specialist is Dr Zac Keller. Plan is for pt to dc home when medically stable. SW is following to assist as needed with discharge planning.
[2019-02-03 16:01] VITALS: BP 146/73
--- NOTE | 2019-02-03 20:04 | NUR ---
PT REPORTS FEELING CHEST TIGHT AND SOA...SATS MID 90'S...WEARS O2 PRN COMFORT...
[2019-02-03 20:17] VITALS: BP 116/48
[2019-02-03] MEDS ORDERED: PERCOCET 7.5-31 EACH PO (22:33)
[2019-02-04 00:21] VITALS: BP 157/69
[2019-02-04 03:53] VITALS: BP 139/53
[2019-02-04 05:10] LABS: HEMATOCRIT 30.6 % (37.0-47.0); HEMOGLOBIN 9.6 gm/dL (12.0-15.0); MCH 30.6 pg (26.0-34.0); MCHC 31.2 g/dL (28.0-37.0); MCV 98.1 fL (80.0-100.0); RBC 3.12 mil/uL (4.20-5.00); RDW 15.2 % (10.5-14.5); WBC 17.2 thou/uL (4.0-11.0)
[2019-02-04 05:29] LABS: CALCIUM 9.3 mg/dL (8.5-10.1); CREATININE 1.3 mg/dL (0.6-1.0); POTASSIUM 4.6 mmol/L (3.5-5.1)
--- NOTE | 2019-02-04 05:29 | NUR ---
ASSUMED CARE AT 1900. PT REPORTS SIGNIFICANT IMPROVEMENT IN BREATHING AFTER RECEIVING A DOSE OF LASIX; STATES SHE WAS ABLE TO WALK TO END OF THE [place] WITH LESS DYSPNEA THAN EARLIER IN THE DAY WHEN SHE WAS UNABLE TO WALK MCFP DOWN THE [place]. HAS BEEN SR ON TELE, EXCEPT WHEN UP WALKING HR WAS LOW 120'S.HS BLOOD SUGAR WAS 356, GAVE 23 UNITS OF LISPRO. PT REPORTS STILL HAVING A MIGRAINE, GAVE A SECOND DOSE OF IMITREX; PT REPORTS IT HELPS SLIGHTLY FOR AN HOUR OR TWO THEN WEARS OFF; PT STATES SHE TAKE OXYCODONE PRN FOR MIGRAINES. NO OTHER CONCERNS, WILL CONTINUE TO MONITOR.
[2019-02-04 07:34] VITALS: BP 156/69
[2019-02-04 11:42] VITALS: BP 141/68
--- NOTE | 2019-02-04 13:23 | 2DMMODE ---
[facility] [place] [address] 2 D/M-MODE ECHOCARDIOGRAM Name: KWADWO SHAY Room #: 360-P ADM IN M.R.#: [id number] Admission: 02/02/19 Attend Phys: Stephan Fortune MD Discharge: Date of : 56 Report #: [id number] THIS REPORT FOR: //name// APPROVED REPORT Study performed: 02/04/2019 11:52:45 EXAM: Comprehensive 2D, Doppler, and color-flow Echocardiogram Patient Location: Bedside Room #: 360 Status: routine BSA: 2.51 HR: 100 bpm BP: 156/69 mmHg Rhythm: NSR/tachy Other Information Study Quality: Adequate Technically limited study due to morbid obesity. Indications Question pulmonary edema, CHF. Hx: Aortic stenosis, HTN, HLP, DM. 2D Dimensions RVDd: 44.17 mm IVSd: 12.00 (7-11mm) LVOT Diam: 19.80 (18-24mm) LVDd: 49.00 mm PWd: 11.00 (7-11mm) LVDs: 30.48 (25-40mm) Aortic Root: 27.62 mm Volumes Left Atrial Volume (Systole) Single Plane 4CH: 91.73 mL Single Plane 2CH: 66.42 mL LA ESV Index: 34.00 mL/m2 Aortic Valve AoV Peak Bubba.: 4.98 m/s AO Peak Gr.: 99.40 mmHg LVOT Max P.04 mmHg AO Mean Gr.: 59.65 mmHg AO V2 Mean: 3.71 m/s LVOT Max V: 1.42 m/s AO V2 VTI: 104.10 cm PAWEL Vmax: 0.88 cm2 [facility] [place] [address] [place] [address] 2 D/M-MODE ECHOCARDIOGRAM Name: KWADWO SHAY Room #: [address] [place] [address] [place] .R.#: [id number] Admission: 02/02/19 Attend Phys: Stephan Fortune MD Discharge: Date of : 56 Report #: [id number] Mitral Valve E/A Ratio: 1.1 MV Decel. Time: 186.29 ms MV E Max Bubba.: 1.40 m/s MV A Bubba.: 1.28 m/s MV PHT: 54.02 ms IVRT: 50.75 ms Pulmonary Valve PV Peak Bubba.: 1.85 m/s PV Peak Gr.: 13.75 mmHg Pulmonary Vein P Vein S: 0.93 m/s P Vein A: 0.47 m/s P Vein D: 0.73 m/s P Vein A Dur.: 93.4 msec P Vein S/D Ratio: 1.27 Tricuspid Valve TR Peak Bubba.: 2.04 m/s RAP Estimate: 5.00 mmHg TR Peak Gr.: 17.00 mmHg PA Pressure: 22.00 mmHg Left Ventricle The left ventricle is normal size. There is normal LV segmental wall motion. Mild concentric left ventricular hypertrophy. Left ventricular systolic function is normal. LVEF is 65%. Moderate diastolic dysfunction is present (pseudonormal filling). Right Ventricle Right ventricle is mildly dilated. The right ventricular systolic function is normal. Atria Left atrium is moderately dilated. Right atrium is mildly dilated. Aortic Valve Aortic valve is heavily calcified. Trace aortic regurgitation. There is severe valvular aortic stenosis. Calculated aortic valve area is 0.9 cm2 with maximum pressure gradient of 99 mmHg and mean pressure gradient of 60 mmHg. Mitral Valve The mitral valve is normal in structure. Moderate mitral annular calcification. Mild to moderate mitral regurgitation. [address] [address] 2 D/M-MODE ECHOCARDIOGRAM Name: KWADWO SHAY Room #: 360-P ADM IN M.R.#: [id number] Admission: 02/02/19 Attend Phys: Stephan Fortune MD Discharge: Date of : 56 Report #: [id number] Tricuspid Valve The tricuspid valve is normal in structure. Trace tricuspid regurgitation. Estimated PAP is 20-25mmHg. Pulmonic Valve The pulmonary valve is normal in structure. There is no pulmonic valvular regurgitation. Great Vessels The aortic root is normal in size. Ascending aorta is not well visualized. IVC is normal in size and collapses >50% with inspiration. Pericardium There is no pericardial effusion. <Conclusion> The left ventricle is normal size. Mild concentric left ventricular hypertrophy. LVEF is 65%. Moderate diastolic dysfunction is present (pseudonormal filling). Right ventricle is mildly dilated. Right atrium is mildly dilated. Aortic valve is heavily calcified. Trace aortic regurgitation. There is severe valvular aortic stenosis. Calculated aortic valve area is 0.9 cm2 with maximum pressure gradient of 99 mmHg and mean pressure gradient of 60 mmHg. The mitral valve is normal in structure. Moderate mitral annular calcification. Mild to moderate mitral regurgitation. Trace tricuspid regurgitation. Estimated PAP is 20-25mmHg. The aortic root is normal in size. There is no pericardial effusion. <ELECTRONICALLY SIGNED> By: Law Joshua MD, FACC 02/04/19 132 21 21 Law Joshua MD, FACC /INF
--- NOTE | 2019-02-04 14:27 | NUR ---
SW reviewed chart and spoke with nursing and attending physician. Pt is progressing towards goals for discharge. Discharge home is anticipated for tomorrow. No discharge needs anticipated. SW is available to assist should needs arise.
[2019-02-04 15:43] VITALS: BP 109/49
--- NOTE | 2019-02-04 15:52 | NUR ---
PT EXHIBITED SYMPTOMS RELATED TO ANXIETY THROUGHOUT THE DAY. PT WAS EDUCATED ON PURSED LIP BREATHING A TOOL TO HELP HER BREATHE BETTER AND ALSO A RELAXATION METHOD. PT EXPRESSED GOOD SPIRITS AND IS EAGER TO BE DISCHARGED TOMORROW.
--- NOTE | 2019-02-04 18:39 | NUR ---
ASSUMED PATIENT CARE AT 0700. A/O X4. ANXIOUS. SOB WITH EXERTION. UP AD YINA. SLOWLYTOWARDS POC GOALS.
--- NOTE | 2019-02-04 18:57 | EKG ---
[address] [place] [address] ELECTROCARDIOGRAM REPORT Name: KWADWO SHAY Room #: 360-P ADM IN M.R.#: [id number] Admission: 02/02/19 Attend Phys: Stephan Fortune MD Discharge: Date of : 56 Report #: [id number] THIS REPORT FOR: //name// [facility] ED Test Date: 2019-02-02 Test Time: 12:38:33 Pat Name: KWADWO SHAY Department: Room: 360 Gender: F Printed Circuit Designer: Leandra JOHNSON : 1960 Requested By: Den Valles Order Number: [id number] MD: Reyes Tee Measurements Intervals [place] Rate: 93 P: 54 MI: 125 QRS: 32 QRSD: 96 T: 104 QT: 347 QTc: 432 Interpretive Statements Sinus rhythm Voltage criteria for LVH Nonspecific ST segment abnormality Compared to ECG 02/01/2019 12:49:04 No significant change was found Electronically Signed On 02-04-2019 18:57:18 TRIPLE AIR VALVE TESTER by Reyes Tee [email or web address] <ELECTRONICALLY SIGNED> By: Reyes Tee MD, [facility] 02/04/19 1857 1238 1238 Reyes Tee MD, [facility] /EPI
--- NOTE | 2019-02-04 19:04 | EKG ---
[address] [address] ELECTROCARDIOGRAM REPORT Name: KWADWO SHAY Room #: 360-P ADM IN M.R.#: [id number] Admission: 02/02/19 Attend Phys: Stephan Fortune MD Discharge: Date of : 56 Report #: [id number] THIS REPORT FOR: //name// [facility] Test Date: 2019-02-03 Test Time: 08:12:33 Pat Name: KWADWO SHAY Department: Room: 360 P Gender: F Clinical Dermatologist: Richard MURILLO : 1960 Requested By: Stephan Fortune Order Number: [id number] MD: Reyes Tee Measurements Intervals [place] Rate: 88 P: 62 [place]: 137 QRS: 15 QRSD: 102 T: 67 QT: 360 QTc: 436 Interpretive Statements Sinus rhythm LVH with secondary repolarization abnormality Compared to ECG 02/01/2019 12:49:04 No significant change was found Electronically Signed On 02-04-2019 19:04:41 HOSPICE RN by Reyes Tee [email or web address] <ELECTRONICALLY SIGNED> By: Reyes Tee MD, [facility] 02/04/19 1904 1 1 Reyes Tee MD, [facility] /EPI
[2019-02-04 19:43] VITALS: BP 128/55
[2019-02-05 04:00] VITALS: BP 138/69
--- NOTE | 2019-02-05 04:15 | NUR ---
ASSUMED PATIENT CARE AT 1845. VITAL SIGNS SABLE WITH PATIENT HAVING NO COMPLAINTS OF NAUSEA. PATIENT DID COMPLAIN OF MIGRAINE HEADACHES WHICH WERE TREATED APPROPRIATELY THROUGH MEDICATION AND NON PHARMACOLOGICAL INTERVENTION. FULLY ALERT AND ORIENTED, PATIENT APPEARS ANXIOUS AT TIMES BUT DENIES. SHE IS ABLE TO PARTICIPATE IN CARE AND CALL APPROPRIATELY FOR NEEDS. OXYGEN PRN FOR SOA, PATIENTS BREATHING STABLE EVIDENCED BY ASSESSMENT AND SPOT OXYGENATION CHECKS. UP AD YINA THROUGHOUT SHIFT, PATIENT APPEARS STRONG AND BALANCED WHEN AMBULATING. PATIENT IS ANXIOUS TO SPEAK TO DOCTORS TODAY REGARDING DISCHARGE PATIENT DOES NOT FEEL WELL ENOUGH TO GO HOME. CONTINUE PLAN OF CARE.
[2019-02-05 08:42] VITALS: BP 147/65
[2019-02-05 11:24] LABS: ABSOLUTE NEUTROPHILS 13.4 thou/uL (1.4-8.2); BASOPHILS 0.2 % (0.0-2.0); HEMATOCRIT 32.3 % (37.0-47.0); HEMOGLOBIN 10.3 gm/dL (12.0-15.0); LYMPHOCYTES 4.1 % (24.0-44.0); MCH 30.8 pg (26.0-34.0); MCV 96.3 fL (80.0-100.0); MONOCYTES 4.7 % (1.0-8.0); PLATELET COUNT 313 thou/uL (150-400); RBC 3.36 mil/uL (4.20-5.00); RDW 15.1 % (10.5-14.5); WBC 14.8 thou/uL (4.0-11.0)
[2019-02-05 12:09] VITALS: BP 143/73
--- NOTE | 2019-02-05 14:19 | NUR ---
SW reviewed chart and spoke with nursing and attending physician. Pt is requesting a transfer to [facility] for cardiology services. Pt with hx of aortic stenosis. SW met with pt and s/o at bedside. Lengthy discussion regarding transfer process. Pt and s/o verbalized understanding. Pt's equipment manager, Dr. Jameson Patterson is at [facility]. MARILEE explained that insurance will need to be verified, there must be an accepting physician and a room assignment, before ambulance transportation can be arranged. Pt and s/o verbalized understanding. MARILEE contacted the [facility] transfer center and spoke with Kira. Info provided and attending physician's contact info provided. Physician will need to do peer to peer. MARILEE spoke with Tasha in radiology to request radiology images to be uploaded to the cloud and a disc to be made. Chart copy requested. Ambulance and EMTALA forms placed on pt's chart. Awaiting input from [facility] at this time. MARILEE is following to assist as needed with discharge planning.
[2019-02-05] MEDS ORDERED: LASIX 40 MG TAB40 M2 PO (14:47)
[2019-02-05] MEDS ORDERED: PREDNISONE 20 M20 M1 PO (14:48)
[2019-02-05] MEDS ORDERED: MELATONIN5 M1 PO (14:52)
[2019-02-05] MEDS ORDERED: AZITHROMYCIN500 MG PO (14:53)
--- NOTE | 2019-02-05 15:09 | NUR ---
CM FAXED FACESHEET TO [facility] PER THEIR REQUEST TO FAX [phone].
--- NOTE | 2019-02-05 17:12 | NUR ---
ASSUMED NPATIENT CARE AT 0700. [facility]
[2019-02-06 22:06] LABS: ADENOVIRUS Negative (Negative); INFLUENZA A Negative (Negative); INFLUENZA B Negative (Negative); METAPNEUMOVIRUS Negative (Negative); PARAINFLUENZA 1 Negative (Negative); PARAINFLUENZA 2 Negative (Negative); PARAINFLUENZA 3 Negative (Negative); RHINOVIRUS Negative (Negative); RSV A Positive (Negative); RSV B Negative (Negative)
== END 2019-02-05 17:27 | disposition short-term general hospital (02) | DRG 202 ==
LOC: ER 12:32 → 3W 17:07 → EROBS 17:07 → 3W 17:53
PROVIDERS: Emergency Medicine; Nurse Practitioner Family; ADMIT Internal Medicine
DX: J45.901 Unspecified asthma with (acute) exacerbation (principal); N17.0 Acute kidney failure with tubular necrosis; Z68.43 Body mass index [BMI] 50.0-59.9, adult; E87.1 Hypo-osmolality and hyponatremia; I50.32 Chronic diastolic (congestive) heart failure; I13.0 Hypertensive heart and chronic kidney disease with heart failure and stage 1 through stage 4 chronic kidney disease, or unspecified chronic kidney disease; I08.3 Combined rheumatic disorders of mitral, aortic and tricuspid valves; E66.01 Morbid (severe) obesity due to excess calories; G43.909 Migraine, unspecified, not intractable, without status migrainosus; E78.5 Hyperlipidemia, unspecified; G40.909 Epilepsy, unspecified, not intractable, without status epilepticus; Z96.653 Presence of artificial knee joint, bilateral; K21.9 Gastro-esophageal reflux disease without esophagitis; D64.9 Anemia, unspecified; F32.9 Major depressive disorder, single episode, unspecified; F41.9 Anxiety disorder, unspecified; M60.9 Myositis, unspecified; E11.65 Type 2 diabetes mellitus with hyperglycemia; T38.0X5A Adverse effect of glucocorticoids and synthetic analogues, initial encounter; E11.22 Type 2 diabetes mellitus with diabetic chronic kidney disease; N18.9 Chronic kidney disease, unspecified; Z90.710 Acquired absence of both cervix and uterus; Z90.49 Acquired absence of other specified parts of digestive tract; Z88.2 Allergy status to sulfonamides; Z91.041 Radiographic dye allergy status; Z88.8 Allergy status to other drugs, medicaments and biological substances; Z87.891 Personal history of nicotine dependence; Y92.89 Other specified places as the place of occurrence of the external cause; Z91.81 History of falling
CPT/HCPCS: 10080; 10879

== ENCOUNTER → 2020-11-25 | Outpatient (CLI) | payer BC, OTHER ==
[~2020-11-25] MED LIST changes: +AZITHROMYCIN500 MG PO; +CALCIUM500 MG PO; +FLUTICASONE PRO30 G1 NASAL; +LASIX 40 MG TAB40 M2 PO; +MELATONIN5 M1 PO; +PREDNISONE 20 M20 M1 PO; +SPIRIVA RESPIMAT4 G1 INH; +VITAMIN C500 M2 PO
== END ==
LOC: RAD 08:20
PROVIDERS: ATTEND Pediatrics
DX: R06.02 Shortness of breath (principal); R05 Cough; Z88.1 Allergy status to other antibiotic agents; Z88.8 Allergy status to other drugs, medicaments and biological substances